=== PATIENT | female | born 1955 | race Caucasian/White ===

== ENCOUNTER 2018-04-10 14:04 | Emergency (ER) | payer BC ==
--- NOTE | 2018-04-10 15:00 | XRAY Report ---
EXAM: LEFT WRIST RADIOGRAPHY EXAM DATE: 04/10/2018 02:26 PM. CLINICAL HISTORY: Fell onto wrist, swollen. COMPARISON: None. TECHNIQUE: 3 views. FINDINGS: Bones: Transverse fracture through the distal radius metaphysis demonstrates approximately 25 degrees dorsal angulation. No evidence of intra-articular extension. Mild displaced ulnar styloid avulsion f racture. Joints: Normal. No subluxations. Soft Tissues: Mild soft tissue swelling. IMPRESSION: Dorsally angulated distal radius fracture. Ulnar styloid avulsion fracture. [facility] Referring Provider Line: [phone] SITE ID: [id number]
--- NOTE | 2018-04-10 15:16 | ED Physician Documentation ---
PD HPI UPPER EXT INJURY - Stated complaint Stated Complaint: L HAND INJURY - Chief complaint Chief Complaint: Ext Problem - History obtained from History obtained from: Patient, Family - History of Present Illness Location: Left, Wrist Type of injury: Fall Where injury occurred: Home Timing - onset: Today Timing - duration: Hours Timing - details: Abrupt onset, Still present Improved by: Rest, Ice, Immobilization Worsened by: Moving, Palpating Associated symptoms: Swelling. 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 She is uncertain exactly how this happened but she does have some swelling and tenderness of the wrist and she is come up to the hospital now for evaluation. She is able to move the left wrist in a range of motion she is able to move the elbow in a range of motion she does have pain with any movement of the wrist. She denies any pain in the shoulder she denies any loss of consciousness she does think that she hit herself in the back of the head and had some momentary nausea this is resolved. Review of Systems Constitutional: denies: Fever Eyes: denies: Decreased vision Ears: denies: Ear pain Nose: denies: Congestion Throat: denies: Sore throat Cardiac: denies: Chest pain / pressure Respiratory: denies: Dyspnea, Cough GI: reports: Nausea. denies: Abdominal Pain, Vomiting : denies: Dysuria, Frequency Skin: denies: Rash Musculoskeletal: reports: Joint pain, Joint swelling. denies: Neck pain, Back pain Neurologic: denies: Generalized weakness, Focal weakness, Numbness PD PAST MEDICAL HISTORY - Past Medical History Past Medical History: Yes Cardiovascular: Hypertension Endocrine/Autoimmune: HyPERthyroidism - Past Surgical History Past Surgical History: Yes Ortho: Other - Present Medications Home Medications: Ambulatory Orders Medication Instructions Recorded Confirmed HYDROcod/ACETAM 5/325 [[place] 5/325] 1 - 2 ea PO Q6H PRN #15 tablet 04/10/18 Levothyroxine [Synthroid] 04/10/18 Lisinopril 5 mg PO DAILY 04/10/18 - Allergies Allergies/Adverse Reactions: Allergies Allergy/AdvReac Type Severity Reaction Status Date / Time Cough syrup with and "H" Allergy Unknown Uncoded 04/10/18 14:11 - Social History Does the pt smoke?: No Smoking Status: Never smoker Does the pt drink ETOH?: Yes Does the pt have substance abuse?: No - Immunizations Immunizations are current?: Yes PD ED PE NORMAL - Vitals Vital signs reviewed: Yes (normal ) - General General: Alert and oriented X 3, No acute distress, Well developed/nourished - HEENT HEENT: Atraumatic, PERRL, EOMI, Other (no palpable hematoma or tender area) - Neck Neck: Supple, no meningeal sign - Respiratory Respiratory: No respiratory distress - Back Back: No CVA TTP, No spinal TTP - Derm Derm: Normal color, Warm and dry, No rash - Extremities Extremities: Other (There is swelling and tenderness to the left wrist with pain to palp of the dorsal wrist and the ROM is good but with pain and without crepitance. The distal n/v is intact. The elbow is without tenderness or restriction in ROM. ) - Neuro Neuro: No motor deficit, No sensory deficit Eye Opening: Spontaneous Motor: Obeys Commands Verbal: Oriented GCS Score: 15 - Psych Psych: Normal mood, Normal affect Results - Vitals Vitals: Vital Signs - 24 hr 04/10/18 14:08 Temperature 35.7 C L Heart Rate 83 Respiratory 18 Rate Blood Pressure 95/77 O2 Saturation 100 Oxygen O2 Source Room air - Rads (name of study) left wrist Radiology: Prelim report reviewed (Impression: Dorsally angulated distal radius fracture. Ulnar styloid avulsion fracture.), EMP read indepedently, See rad report Procedures - Splint (location) left wrist Splint applied by: Tech Type of splint: Fiberglass, Volar cock up Other: Patient tolerated well, No complications, Neurovascular intact, Good alignment, Sling provided PD MEDICAL DECISION MAKING - ED course Complexity details: reviewed results, re-evaluated patient, considered differential, d/w patient, d/w family ED course: 63-year-old female with a dorsally angulated distal radius fracture with ulnar fracture appears to have good range of motion in the articular surface she is splinted today and will be referred to orthopedics for follow-up. Departure - Departure Disposition: 01 Home, Self Care Clinical Impression: Fracture of distal radius and ulna Qualifiers: Encounter type: initial encounter Fracture type: closed Laterality: left Qualified Code(s): S52.502A - Unspecified fracture of the lower end of left radius, initial encounter for closed fracture; S52.602A - Unspecified fracture of lower end of left ulna, initial encounter for closed fracture; S52.602A - Unspecified fracture of lower end of left ulna, initial encounter for closed fracture Condition: Stable Instructions: ED Fx Forearm Radius Ulna Redu Requ Follow-Up: JOSÉ LUIS VERDE MD [Primary Care Provider] - [facility] [Provider Group] Prescriptions: HYDROcod/ACETAM 5/325 [[place] 5/325] 1 - 2 ea PO Q6H PRN #15 tablet PRN Reason: Pain
[2018-04-10 16:06] VITALS: BP 137/69
== END 2018-04-10 16:23 | disposition home or self-care (01) ==
LOC: ED 14:04
DX: S52.592A Other fractures of lower end of left radius, initial encounter for closed fracture (principal); S52.612A Displaced fracture of left ulna styloid process, initial encounter for closed fracture; W18.30XA Fall on same level, unspecified, initial encounter; Y93.H2 Activity, gardening and landscaping; Y92.009 Unspecified place in unspecified non-institutional (private) residence as the place of occurrence of the external cause; I10 Essential (primary) hypertension
CPT/HCPCS: 29125; 99283

== ENCOUNTER 2020-07-18 10:07 | Day surgery (SDC) | payer MEDICARE ==
[2020-07-18] MEDS ORDERED: fentaNYL 250 MCG/5 ML VIAL IVP ONE (10:08)
[2020-07-18] MEDS ORDERED: MIDAZOLAM 2 MG/2 ML VIAL IVP ONE (10:08)
[2020-07-18] MEDS ORDERED: LACTATED RINGERS 1,000 ML IV ONE (10:30)
[2020-07-18] MEDS ORDERED: LACTATED RINGERS 900 ML IV ONE (12:00)
[2020-07-18 12:55] VITALS: BP 106/71
== END 2020-07-18 10:08 | disposition home or self-care (01) ==
LOC: SDS 10:07
PROVIDERS: ATTEND Surgery
PROC: 0DBL8ZZ Excision of Transverse Colon, Via Natural or Artificial Opening Endoscopic (ICD-10-PCS; principal; 2020-07-18 11:15)
DX: Z12.11 Encounter for screening for malignant neoplasm of colon (principal); D12.3 Benign neoplasm of transverse colon; I10 Essential (primary) hypertension
CPT/HCPCS: 45380; J3010; J7120

== ENCOUNTER 2020-09-10 12:53 | Outpatient (CLI) | payer MEDICARE ==
--- NOTE | 2020-09-11 15:26 | Mammography Report ---
BILATERAL DIGITAL SCREENING MAMMOGRAM 3D/2D: 09/10/2020 CLINICAL: Routine screening. Sister with breast cancer. Comparison is made to exams dated: 11/15/2018 mammogram and 11/03/2017 mammogram - [facility]. There are scattered fibroglandular elements in both breasts. No significant masses, calcifications, or other findings are seen in either breast. There has been no significant interval change. IMPRESSION: NEGATIVE There is no mammographic evidence of malignancy. A 1 year screening mammogram is recommended. This exam was interpreted at Station ID: [id number]. NOTE: For mammograms, a report in lay terms will be sent to the patient. Approximately 15% of breast malignancies will not be visualized mammographically. In the management of a palpable breast mass, a negative mammogram must not discourage biopsy of a clinically suspicious lesion. Electronically Signed By: Lucero stroud/blakerad:09/10/2020 17:53:10 ACR BI-RADS Category 1: Negative 3341F PARENCHYMAL PATTERN: (A) - The breast(s) demonstrate(s) scattered fibroglandular densities. BI-RADS CATEGORY: (1) - 1 RECOMMENDATION: (ANNUAL) - Recommend routine annual screening mammography. [id number] 1 year screening LATERALITY: (B)
== END 2020-09-10 12:54 | disposition home or self-care (01) ==
LOC: DI 12:53
PROVIDERS: ATTEND Family Medicine
DX: Z12.31 Encounter for screening mammogram for malignant neoplasm of breast (principal); Z78.0 Asymptomatic menopausal state
CPT/HCPCS: 77063; 77067

== ENCOUNTER 2020-09-10 12:54 | Outpatient (CLI) | payer MEDICARE ==
--- NOTE | 2020-09-10 13:50 | DEXA Report ---
PROCEDURE: Dexa Spine and/or Hip INDICATIONS: POSTMENOPAUSAL TECHNIQUE: Dual energy x-ray absorptiometry (DXA) was performed on a [employer]. Regions measur ed are the AP Spine, femoral neck, and if needed forearm. COMPARISON: None. FINDINGS: Lumbar Spine: Bone Mineral Density 1.1, 0.7 g/cm/cm,T score -0.3, normal Left Hip: Bone Mineral Density 0.732 g/cm/cm,T score -2.2, osteopenia Left Femoral Neck: Bone Mineral Density 0.803 g/cm/cm, T score -1.7, osteopenia (T score greater or equal to -1.0: NORMAL) (T score from -1.1 to -2.4: OSTEOPENIA) (T score less than or equal to -2.5 to: OSTEOPOROSIS) Impression: Osteopenia. Patients with diagnosis of osteoporosis or osteopenia should have regular bone mineral density assess ment. For those eligible for Medicare, routine testing is allowed once every 2 years. Testing frequ ency can be increased for patients who have rapidly progressing disease or for those who are receivin g medical therapy to restore bone mass. Reviewed by: Amanda Perry MD, PhD on 09/10/2020 1:48 PM PDT Approved by: Amanda Perry MD, PhD on 09/10/2020 1:48 PM PDT Station ID: [id number]
== END 2020-09-10 12:55 | disposition home or self-care (01) ==
LOC: DI 12:54
PROVIDERS: ATTEND Family Medicine
DX: M85.89 Other specified disorders of bone density and structure, multiple sites (principal)
CPT/HCPCS: 77080

== ENCOUNTER 2021-04-10 10:29 | Outpatient (CLI) | payer MEDICARE ==
--- NOTE | 2021-04-14 13:25 | Mammography Report ---
UNILATERAL RIGHT DIGITAL DIAGNOSTIC MAMMOGRAM 3D/2D: 04/10/2021 CLINICAL: Diffuse right breast pain. Comparison is made to exams dated: 09/10/2020 mammogram, 11/15/2018 mammogram, 11/03/2017 mammogram, 1 12/23/2015 mammogram, and 01/06/2015 mammogram - [facility]. There are scattered fibroglandular elements in right breast. No significant masses, calcifications, or other findings are seen in the breast. IMPRESSION: INCOMPLETE: NEEDS ADDITIONAL IMAGING EVALUATION No mammographic evidence of malignancy. A targeted ultrasound of the reported palpable abnormality in the superior breast is recommended and will immediately follow. This exam was interpreted at Station ID: [id number]. NOTE: For mammograms, a report in lay terms will be sent to the patient. Approximately 15% of breast malignancies will not be visualized mammographically. In the management of a palpable breast mass, a negative mammogram must not discourage biopsy of a clinically suspicious lesion. Electronically Signed By: Ryan Quiles M.D. slc/:04/10/2021 11:20:15 ACR BI-RADS Category 0: Incomplete 3340F PARENCHYMAL PATTERN: (A) - The breast(s) demonstrate(s) scattered fibroglandular densities. BI-RADS CATEGORY: (0) - 0 Ultrasound [id number] Immediate follow-up LATERALITY: (B)
--- NOTE | 2021-04-14 13:25 | Ultrasound Report ---
LIMITED ULTRASOUND OF RIGHT BREAST: 04/10/2021 CLINICAL: Dense right upper breast tissue per ordering. ? mass. Comparison is made to exams dated: 04/10/2021 mammogram, 09/10/2020 mammogram, 11/15/2018 mammogram, mammogram, 10/22/2016 mammogram, and 01/06/2015 mammogram - [facility]. Real-time ultrasound of the right breast 3-9 o'clock region was performed. [place] scale images of the real-time examination were reviewed. No significant abnormalities were seen sonographically in the right breast in the region of the repor ethan palpable abnormality. IMPRESSION: NEGATIVE There is no sonographic evidence of malignancy. Return to annual mammogram screening schedule is recommended. Exam findings were conveyed to the patient. Patient is advised to monitor for significant change. Cli nical follow-up as needed. This exam was interpreted at Station ID: [id number]. Electronically Signed By: Ryan Qulies M.D. slc/:04/10/2021 12:49:43 Ultrasound BI-RADS: 1 Negative BI-RADS CATEGORY: (1) - 1 RECOMMENDATION: (ANNUAL) - Recommend routine annual screening mammography. [id number] 1 year screening LATERALITY: (B)
== END 2021-04-10 10:30 | disposition home or self-care (01) ==
LOC: DI 10:29
PROVIDERS: ATTEND Nurse Practitioner Family
DX: N63.11 Unspecified lump in the right breast, upper outer quadrant (principal); R92.8 Other abnormal and inconclusive findings on diagnostic imaging of breast

== ENCOUNTER 2021-10-16 10:13 | Outpatient (CLI) | payer MEDICARE ==
--- NOTE | 2021-10-19 14:00 | Mammography Report ---
BILATERAL DIGITAL SCREENING MAMMOGRAM 3D/2D: 10/16/2021 CLINICAL: Routine screening. Comparison is made to exams dated: 09/10/2020 mammogram, 11/15/2018 mammogram, and 11/03/2017 mammogra m - [facility]. There are scattered fibroglandular elements in both breasts. No significant masses, calcifications, or other findings are seen in either breast. There has been no significant interval change. IMPRESSION: NEGATIVE There is no mammographic evidence of malignancy. A 1 year screening mammogram is recommended. This exam was interpreted at Station ID: [id number]. NOTE: For mammograms, a report in lay terms will be sent to the patient. Approximately 15% of breast malignancies will not be visualized mammographically. In the management of a palpable breast mass, a negative mammogram must not discourage biopsy of a clinically suspicious lesion. Electronically Signed By: Lucero stroud/blakerad:10/16/2021 18:01:55 ACR BI-RADS Category 1: Negative 3341F PARENCHYMAL PATTERN: (A) - The breast(s) demonstrate(s) scattered fibroglandular densities. BI-RADS CATEGORY: (1) - 1 RECOMMENDATION: (ANNUAL) - Recommend routine annual screening mammography. [id number] 1 year screening LATERALITY: (B)
== END 2021-10-16 10:14 | disposition home or self-care (01) ==
LOC: DI 10:13
PROVIDERS: ATTEND Nurse Practitioner Family
DX: Z12.31 Encounter for screening mammogram for malignant neoplasm of breast (principal)

== ENCOUNTER 2022-11-01 11:14 | Outpatient (CLI) | payer MEDICARE ==
--- NOTE | 2022-11-02 10:47 | Mammography Report ---
BILATERAL DIGITAL SCREENING MAMMOGRAM 3D/2D: 11/01/2022 CLINICAL: Routine screening. Comparison is made to exams dated: 10/16/2021 mammogram, 04/10/2021 mammogram, 09/10/2020 mammogram, mammogram, and 11/03/2017 mammogram - [facility]. There are scattered areas of fibroglandular density in both breasts (category b / 25%-50% glandular t issue). No significant masses, calcifications, or other findings are seen in either breast. There has been no significant interval change. IMPRESSION: NEGATIVE There is no mammographic evidence of malignancy. A 1 year screening mammogram is recommended. Based on the Tyrer Cuzick model (a risk assessment model) the patients lifetime risk is 13.3% and he r 10 year risk is 7.5%. According to the ACR, ACS, and NCCN guidelines, an annual breast MRI exam darwin ng with mammogram is recommended if the patients lifetime risk is 20% or greater. This exam was interpreted at Station ID: [id number]. NOTE: For mammograms, a report in lay terms will be sent to the patient. Approximately 15% of breast malignancies will not be visualized mammographically. In the management of a palpable breast mass, a negative mammogram must not discourage biopsy of a clinically suspicious lesion. Electronically Signed By: Edilberto Cox M.D. acr/penrad:11/01/2022 16:48:56 ACR BI-RADS Category 1: Negative 3341F PARENCHYMAL PATTERN: (A) - The breast(s) demonstrate(s) scattered fibroglandular densities. BI-RADS CATEGORY: (1) - 1 RECOMMENDATION: (ANNUAL) - Recommend routine annual screening mammography. [id number] 1 year screening LATERALITY: (B)
== END 2022-11-01 11:15 | disposition home or self-care (01) ==
LOC: DI 11:14
PROVIDERS: ATTEND Internal Medicine
DX: Z12.31 Encounter for screening mammogram for malignant neoplasm of breast (principal)

== ENCOUNTER 2024-01-11 13:31 | Outpatient (CLI) | payer MEDICARE ==
--- NOTE | 2024-01-12 09:41 | Mammography Report ---
BILATERAL DIGITAL SCREENING MAMMOGRAM 3D/2D: 01/11/2024 CLINICAL: Routine screening. Comparison is made to exams dated: 11/01/2022 mammogram, 10/16/2021 mammogram, 04/10/2021 mammogram, mammogram, 09/10/2020 mammogram, and 11/03/2017 mammogram - [facility]. There are scattered areas of fibroglandular density in both breasts (category b / 25%-50% glandular t issue). No significant masses, calcifications, or other findings are seen in either breast. There has been no significant interval change. IMPRESSION: NEGATIVE There is no mammographic evidence of malignancy. A 1 year screening mammogram is recommended. Based on the Tyrer Cuzick model (a risk assessment model) the patient's lifetime risk is 12.6% and he r 10 year risk is 7.6%. According to the ACR, ACS, and NCCN guidelines, an annual breast MRI exam darwin ng with mammogram is recommended if the patient's lifetime risk is 20% or greater. This exam was interpreted at Station ID: [id number]. NOTE: For mammograms, a report in lay terms will be sent to the patient. Approximately 15% of breast malignancies will not be visualized mammographically. In the management of a palpable breast mass, a negative mammogram must not discourage biopsy of a clinically suspicious lesion. Electronically Signed By: Stephanie kirk/david:01/11/2024 16:01:47 letter sent: No_Letter ACR BI-RADS Category 1: Negative 3341F PARENCHYMAL PATTERN: (A) - The breast(s) demonstrate(s) scattered fibroglandular densities. BI-RADS CATEGORY: (1) - 1 Mammogram [id number] 1 year screening LATERALITY: (B)
== END 2024-01-11 13:32 | disposition home or self-care (01) ==
LOC: DI 13:31
PROVIDERS: ATTEND Registered Nurse
DX: Z12.31 Encounter for screening mammogram for malignant neoplasm of breast (principal); R92.323 Mammographic fibroglandular density, bilateral breasts

== ENCOUNTER 2024-01-16 13:29 | Outpatient (CLI) | payer MEDICARE | END 2024-01-16 13:30 | disposition home or self-care (01) | LOC: RT 13:29 | PROVIDERS: ATTEND Registered Nurse | DX: Z53.9 Procedure and treatment not carried out, unspecified reason (principal) ==

== ENCOUNTER 2024-01-16 13:47 | Emergency (ER) | payer MEDICARE ==
--- NOTE | 2024-01-16 14:11 | ED Physician Documentation ---
PD HPI CHEST PAIN - Stated complaint Stated Complaint: HIGH HR,FATIGUE,SOA - Chief complaint Chief Complaint: Cardiac - History obtained from History obtained from: Patient - History of Present Illness Timing - onset: How many weeks ago (several weeks) Timing - onset during: Light activity Timing - duration: Weeks Timing - details: Gradual onset, Waxing and waning Quality: Tightness, Other (She is having a feeling of dyspnea and has noted tachycardic heart rate in the range from 100-130 over the last several weeks. She had been to her primary care about dyspnea and was referred for PFTs. Today was noted to heart rate 1 30-1 50 and referred to the ER.) Location: Substernal Radiation: Back (She has noticed right flank pain over the last couple of weeks and thought it would be muscular. No apparent injury.) Improved by: No: Rest Worsened by: Exertion Associated symptoms: Shortness of air, Other (fatigue). No: Nausea, Vomiting Similar symptoms before: Has not had sx before Recently seen: Clinic (Was seen in her primary care clinic for insomnia primarily but also the back pain. Instructed to take NSAIDs and then recently prescribed hydroxyzine for sleep to help with the insomnia.) Review of Systems Constitutional: reports: Myalgias, Fatigue. denies: Fever, Chills, Weight Loss Nose: denies: Rhinorrhea / runny nose, Congestion Throat: denies: Sore throat Cardiac: reports: Palpitations (noted fast heart rate for past several weeks, range 100-130 variable.) Respiratory: denies: Cough GI: denies: Abdominal Pain, Nausea, Vomiting, Diarrhea Skin: denies: Rash, Lesions Musculoskeletal: reports: Back pain Neurologic: reports: Generalized weakness. denies: Focal weakness, Numbness PD PAST MEDICAL HISTORY - Past Medical History Past Medical History: Yes Cardiovascular: Hypertension Respiratory: None Endocrine/Autoimmune: HyPOthyroidism GI: Colon polyps : None HEENT: None Psych: None Musculoskeletal: None Derm: None - Past Surgical History Past Surgical History: Yes General: Colonoscopy Ortho: Other - Present Medications Home Medications: Ambulatory Orders Medication Instructions Recorded Confirmed Levothyroxine [Synthroid] 75 mcg PO DAILY 04/10/18 01/17/24 Losartan Potassium 25 mg PO DAILY 01/16/24 01/17/24 hydrOXYzine HCL [Hydroxyzine HCl] 25 mg ORAL QPM 01/16/24 01/16/24 - Allergies Allergies/Adverse Reactions: Allergies Allergy/AdvReac Type Severity Reaction Status Date / Time homatropine Allergy Unknown Verified 01/16/24 20:48 - Social History Does the pt smoke?: No Smoking Status: Never smoker Does the pt drink ETOH?: Yes Does the pt have substance abuse?: No - Immunizations Immunizations are current?: Yes PD ED PE NORMAL - Vitals Vital signs reviewed: Yes - General General: Alert and oriented X 3, Well developed/nourished - HEENT HEENT: Moist mucous membranes, Pharynx benign, Other (mild cervical adenopathy.) - Neck Neck: Supple, no meningeal sign - Cardiac Cardiac: No: RRR (regular but tachycardic) - Respiratory Respiratory: No respiratory distress, Clear bilaterally - Abdomen Abdomen: Soft, Non tender - Back Back: No CVA TTP - Derm Derm: Normal color, Warm and dry - Extremities Extremities: No edema, No calf tenderness / cord - Neuro Neuro: Alert and oriented X 3, No motor deficit, No sensory deficit Results - Vitals Vitals: Vital Signs - 24 hr 01/16/24 01/16/24 01/16/24 18:30 19:00 19:30 Temperature Heart Rate 101 H 99 102 H Respiratory 16 16 15 Rate Blood Pressure 127/73 O2 Saturation 99 98 99 01/16/24 01/16/24 01/16/24 20:00 21:00 22:00 Temperature Heart Rate 102 H 111 H 88 Respiratory 16 14 15 Rate Blood Pressure 137/79 H 128/92 H 127/81 H O2 Saturation 96 97 01/16/24 01/17/24 01/17/24 23:00 00:00 01:00 Temperature Heart Rate 92 86 88 Respiratory 17 24 13 Rate Blood Pressure 131/66 H 120/75 119/57 L O2 Saturation 96 96 96 01/17/24 01/17/24 01/17/24 02:00 03:00 05:00 Temperature Heart Rate 86 90 86 Respiratory 15 16 18 Rate Blood Pressure 122/70 121/59 L 109/69 O2 Saturation 94 5 L 96 01/17/24 01/17/24 01/17/24 06:00 07:00 09:18 Temperature Heart Rate 89 92 95 Respiratory 16 14 18 Rate Blood Pressure 121/77 122/72 120/75 O2 Saturation 94 96 100 0301/17/24 01/17/24 10:00 11:58 14:44 Temperature 36.4 C L Heart Rate 93 80 101 H Respiratory 12 16 20 Rate Blood Pressure 106/95 H 117/68 138/69 H O2 Saturation 94 98 100 01/17/24 16:12 Temperature Heart Rate 104 H Respiratory 14 Rate Blood Pressure 137/84 H O2 Saturation 99 Oxygen O2 Source Room air - Labs Labs: Laboratory Tests 01/16/24 01/16/24 01/16/24 14:05 14:05 14:05 WBC 5.8 RBC 4.63 Hgb 13.0 Hct 40.8 MCV 88.1 MCH 28.1 MCHC 31.9 L RDW 15.9 H Plt Count 165 MPV 9.7 Neut # (Auto) 4.7 Lymph # (Auto) 0.2 L Leon # (Auto) 0.6 Eos # (Auto) 0.1 Baso # (Auto) 0.1 Absolute Nucleated RBC 0.00 Nucleated RBC % 0.0 Sodium 139 Potassium 3.8 Chloride 99 L Carbon Dioxide 30 Anion Gap 10.0 BUN 18 Creatinine 0.8 Estimated GFR (MDRD) 71 L Glucose 163 H Calcium 13.5 H* Phosphorus Magnesium 1.2 L Total Bilirubin 0.7 AST 20 ALT 14 Alkaline Phosphatase 103 Troponin I High Sens 3.3 C-Reactive Protein 2.5 H B-Natriuretic Peptide Total Protein 7.2 Albumin 4.1 Globulin 3.1 Albumin/Globulin Ratio 1.3 Lipase 22 TSH 4.92 01/16/24 01/16/24 01/17/24 14:05 14:05 11:20 WBC RBC Hgb Hct MCV MCH MCHC RDW Plt Count MPV Neut # (Auto) Lymph # (Auto) Leon # (Auto) Eos # (Auto) Baso # (Auto) Absolute Nucleated RBC Nucleated RBC % Sodium 140 Potassium 3.7 Chloride 103 Carbon Dioxide 27 Anion Gap 10.0 BUN 19 Creatinine 0.8 Estimated GFR (MDRD) 71 L Glucose 114 H Calcium 11.2 H Phosphorus 4.1 Magnesium 1.4 L Total Bilirubin 0.6 AST 16 ALT 12 Alkaline Phosphatase 81 Troponin I High Sens C-Reactive Protein B-Natriuretic Peptide 14 Total Protein 6.2 L Albumin 3.6 Globulin 2.6 Albumin/Globulin Ratio 1.4 Lipase 18 TSH - Rads (name of study) chest xray Relevant Findings:: Prelim report reviewed (no acute findings), EMP independent interpretation of test chest/abd/pelvic CT Relevant Findings:: Prelim report reviewed (Paraesophageal lymph node with some encroachment on the IVC and aorta. Large conglomeration of lymph node mass retroperitoneal measuring 6 x 10 x 12 cm. Multiple lymph nodes throughout the mesentery and lung parenchyma.), EMP independent interpretation of test PD Medical Decision Making - ED course Complexity details: reviewed results, considered differential (With the persistent tachycardia and some fatigue, I would consider things like anemia, thyroid disorder, new onset diabetes, cardiomyopathy or other concerns. Can check basic labs to evaluate for these.), d/w patient, d/w artist consultant (Dr. Terrazas, section chief Oncology from [facility]. His opinion is that the patient should be transferred to acute care facility that can do biopsy and start chemotherapy more promptly due to her symptoms of the tachycardia and elevated calcium as well as the description tumor encroaching IVC/aorta.) Reviewed Lab Results: The patient's labs returned a normal TSH. She is on a low-dose thyroid supplement already and appears to be the correct dose. Basic blood count shows a normal white count and hemoglobin. Electrolytes show a decrease in the magnesium at 1.2. Potassium and sodium are normal. Her calcium is elevated at 13.5 which is unusual as an isolated finding. She does take a vitamin D supplement that has some calcium in it but I would not think this to cause a profound or moderate elevation as this. With the fatigue and tachycardia over the last few weeks associated with a isolated hypercalcemia, I would be concern for hypercalcemia of malignancy and ordered a CT of the chest and belly. This did find for multiple lymph nodes in various places with a large lymph node conglomeration in the retroperitoneal area measuring 6 x 10 x 12 cm. Of concern however is also a paraesophageal lymph node that is in wrapping the IVC and aorta. These findings are particularly of concern when I consulted with oncology on- call. They feel the patient should be transferred for more prompt biopsy and diagnosis and onset of chemotherapy. The oncologist stated initial chemotherapy for lymphoma is typically inpatient anyway due to concerns for tissue lysis syndrome. I discussed this with the patient. She is in agreement we meant for this. We will search for hospitals with bed availability for this. Treatment was initiated with fluids and Lasix for the hypercalcemia. It is of a moderate elevation but presumably can go higher given the lymphoma so I also ordered a by phosphonate. We will continue with IV fluids as well. ED course: The patient remained good overnight. She has not had any pains. She had received IV fluids as well as medication for the hypercalcemia. Repeat labs this morning showed a normal blood count. Her calcium level was improved to 11.7. Other electrolytes were good with the magnesium improved to 1.4. We can run a little bit more magnesium if needed. [facility] called that they did have a bed available and are able to accept the patient. I talked with oncology and then Dr. Kevyn Schwarz the hospitalist who is the accepting and agree with the treatment. The patient will be transported by BLS ambulance. - Consults Consults: Consulted (name) (Nini) Departure - Departure Disposition: 02 Transfer Acute Care Hosp Clinical Impression: Tachycardia, Hypercalcemia, Back pain, Lymphoma, Hypomagnesemia Condition: Stable Record reviewed to determine appropriate education?: Yes Follow-Up: Mona Toledo, [employer] [Primary Care Provider] - Forms: PCP List
[2024-01-16 14:12] LABS: BASOPHILS # (AUTO) 0.1 10^3/uL (0.0-0.1); BASOPHILS % (AUTO) 0.9 %; EOSINOPHILS # (AUTO) 0.1 10^3/uL (0.0-0.7); EOSINOPHILS % (AUTO) 1.9 %; HCT - HEMATOCRIT 40.8 % (37.0-47.0); LYMPHOCYTES # (AUTO) 0.2 10^3/uL (1.5-3.5); MEAN CORPUSCULAR HEMOGLOBIN 28.1 pg (27.0-31.0); MEAN CORPUSCULAR HGB CONC 31.9 g/dL (32.0-36.0); MEAN CORPUSCULAR VOLUME 88.1 fL (81.0-99.0); MEAN PLATELET VOLUME 9.7 fL (7.9-10.8); MONOCYTES # (AUTO) 0.6 10^3/uL (0.0-1.0); MONOCYTES % (AUTO) 10.9 %; NEUTROPHILS # (AUTO) 4.7 10^3/uL (1.5-6.6); PLT - PLATELET COUNT 165 10^3/uL (130-450); RED BLOOD COUNT 4.63 10^6/uL (4.20-5.40); RED CELL DISTRIBUTION WIDTH 15.9 % (12.0-15.0); WHITE BLOOD COUNT 5.8 x10^3/uL (4.8-10.8)
[2024-01-16 14:39] LABS: TROPONIN I HIGH SENSITIVITY 3.3 ng/L (2.3-14.8)
[2024-01-16 14:54] LABS: CALCIUM 13.5 mg/dL (8.5-10.3)
--- NOTE | 2024-01-16 14:54 | XRAY Report ---
PROCEDURE: Chest 1V INDICATIONS: Chest pain TECHNIQUE: One view of the chest was acquired. COMPARISON: None. FINDINGS: Surgical changes and devices: None. Lungs and pleura: No pleural effusions or pneumothorax. Linear left basilar opacity likely atelectas is. Mediastinum: Mediastinal contours appear normal. Heart size is normal. Bones and chest wall: No suspicious bony lesions. Overlying soft tissues appear unremarkable. IMPRESSION: No acute cardiopulmonary process. Reviewed by: Lissa Kaye MD on 01/16/2024 2:52 PM PST Approved by: Lissa Kaye MD on 01/16/2024 2:52 PM PST Station ID: [id number]
[2024-01-16 15:04] LABS: CRP - C-REACTIVE PROTEIN 2.5 mg/dL (<0.5); MAGNESIUM 1.2 mg/dL (1.7-2.3)
[2024-01-16 15:12] LABS: ALBUMIN 4.1 g/dL (3.2-5.5); ALBUMIN/GLOBULIN RATIO 1.3 (1.0-2.2); BILIRUBIN,TOTAL 0.7 mg/dL (0.2-1.0); CREATININE 0.8 mg/dL (0.6-1.3); POTASSIUM 3.8 mmol/L (3.5-4.5); TOTAL PROTEIN 7.2 g/dL (6.4-8.9)
[2024-01-16 15:19] LABS: THYROID STIMULATING HORMONE 4.92 uIU/mL (0.34-5.60)
[2024-01-16] MEDS: MAGNESIUM SULFATE 2 GRAM 2 GM/50 ML BAG IV ONE (16:14)
[2024-01-16] MEDS ORDERED: IOVERSOL 320 100 ML VIAL IVP ONE (16:45)
--- NOTE | 2024-01-16 17:29 | CT Report ---
PROCEDURE: Chest W INDICATIONS: tachycardia, elevated calcium CONTRAST: Optiray 320- 100ml TECHNIQUE: After the administration of intravenous contrast, a CT scan of the chest was performed. Images were recorded and evaluated at appropriate window settings. Reformats: axial MIP of the chest, coronal and sagittal. For radiation dose reduction, the following was used: automated exposure control, adjustme nt of mA and/or kV according to patient size. COMPARISON: Same day chest x-ray FINDINGS: Image quality: Diagnostic. Chest wall and lower neck: No thyroid nodule which requires sonographic follow up. No axillary or sup raclavicular adenopathy by size. Lungs and pleura: Biapical pleural-parenchymal scarring. No consolidation. No pleural effusions. No pneumothorax. Right upper lobe 2 mm pulmonary nodule (4/17). 3 mm right upper lobe nodule (4/31). Lef t lower lobe 2 mm micronodule (467). Linear atelectasis versus scarring within the bilateral lower lo bes, right middle lobe and lingula. Mediastinum: Heart size is normal. Mild coronary desiccation is. No pericardial effusion. No large ve ssel abnormality. Prominent enlarged lower paraesophageal lymph nodes measuring up to 1.1 cm (2/75). Bones: No aggressive osseous abnormality. Mild degenerative changes of the spine. Upper Abdomen: Please refer to separate dictated CT of the abdomen and pelvis. IMPRESSION: 1.Enlarged lower paraesophageal lymph node measuring 1.1 cm, concerning for metastatic disease. 2.Scattered pulmonary micronodules are nonspecific, attention on follow-up. Reviewed by: Avery Hanley MD on 01/16/2024 5:28 PM PST Approved by: Avery Hanley MD on 01/16/2024 5:28 PM PST Station ID: [id number]
[2024-01-16] MEDS: SODIUM CHLORIDE 0.9% 1,000 ML IV STA (17:34)
--- NOTE | 2024-01-16 18:01 | CT Report ---
PROCEDURE: Abdomen/Pelvis W INDICATIONS: tachycardia, elevated calcium CONTRAST: Optiray 320- 100ml TECHNIQUE: After the administration of intravenous contrast, a CT scan of the abdomen and pelvis was performed. Images were recorded and evaluated at appropriate window settings. Reformats: coronal and sagittal. F or radiation dose reduction, the following was used: automated exposure control, adjustment of mA and /or kV according to patient size. COMPARISON: None. FINDINGS: Image quality: Diagnostic. Lower chest: Please refer to separately dictated CT of chest. Liver: No solid mass. Multiple hepatic hypodensities which appear to be cystic. Gallbladder and biliary tree: Cholelithiasis without wall thickening. No biliary dilation. Spleen: No splenomegaly. Pancreas: No pancreatic ductal dilation. Adrenals: No adrenal nodule. Kidneys and ureters: No hydronephrosis. No renal cystic lesion which requires follow up. No solid mas s. Stomach, bowel and peritoneum: No bowel distension. Small bowel ascites.. Lymph nodes: Conglomerate retroperitoneal lymphadenopathy involving the mid and upper abdomen measuri ng approximately 9.7 x 10.6 x 16.9 cm. This encases the aorta and IVC as well as the branching vessel s and less than from the spine. Additional enlarged lymph nodes are seen throughout the mesentery and pelvis. Vessels: No infrarenal aortic aneurysm. Atherosclerotic vascular calcific indications. PELVIS Reproductive organs: Unremarkable. Bladder: No abnormal wall thickening, accounting for underdistention. Pelvic lymph nodes: No pelvic adenopathy by size criteria. Bones: No aggressive osseous abnormality. Decreased osseous mineralization. Degenerative changes, mos t pronounced at L5-S1. Other: No significant ventral or inguinal hernia. IMPRESSION: 1.Conglomerate lymphadenopathy within the upper abdomen as described above. Additional enlarged lymph nodes throughout the mesentery and pelvis. Findings are concerning for lymphoma. Other differential considerations include metastatic disease. 2.Small volume ascites, may be reactive or malignant. Reviewed by: Avery Hanley MD on 01/16/2024 6:00 PM [facility] Approved by: Avery Hanley MD on 01/16/2024 6:00 PM PST Station ID: [id number]
[2024-01-16] MEDS: IOVERSOL 320 100 ML VIAL IVP ONE (18:43)
[2024-01-16] MEDS: METOPROLOL TARTRATE 50 MG TABLET PO STA (19:27)
[2024-01-16] MEDS ORDERED: ZOLEDRONIC ACID 4 MG/5 ML VIAL IV STA (19:46)
[2024-01-16] MEDS ORDERED: ZOLEDRONIC ACID 4 MG in SODIUM CHLORIDE 0.9% 100ML 100 ML IV ONE (20:00)
[2024-01-16] MEDS: FUROSEMIDE 20 MG/2 ML VIAL IVP STA (20:21)
[2024-01-16] MEDS: ZOLEDRONIC ACID 4 MG/100 ML 4 MG/100 ML BAG IV ONE (21:34)
[2024-01-17] MEDS: LEVOTHYROXINE 75 MCG TABLET PO SCH (07:30)
[2024-01-17] MEDS: METOPROLOL TARTRATE 25 MG TABLET PO SCH (08:39)
[2024-01-17] MEDS: LOSARTAN 50 MG TABLET PO SCH (08:39)
[2024-01-17] MEDS: SODIUM CHLORIDE 0.9% 1,000 ML IV STA (11:24)
[2024-01-17 11:36] LABS: MAGNESIUM 1.4 mg/dL (1.7-2.3)
[2024-01-17 11:42] LABS: ALBUMIN 3.6 g/dL (3.2-5.5); ALBUMIN/GLOBULIN RATIO 1.4 (1.0-2.2); BILIRUBIN,TOTAL 0.6 mg/dL (0.2-1.0); CALCIUM 11.2 mg/dL (8.5-10.3); CREATININE 0.8 mg/dL (0.6-1.3); POTASSIUM 3.7 mmol/L (3.5-4.5); TOTAL PROTEIN 6.2 g/dL (6.4-8.9)
[2024-01-17] MEDS: ACETAMINOPHEN 500 MG TABLET PO STA (17:53)
[2024-01-17 20:43] VITALS: BP 144/88; O2SAT 95
== END 2024-01-17 20:30 | disposition short-term general hospital (02) ==
LOC: ED 13:47
DX: R00.0 Tachycardia, unspecified (principal); E83.52 Hypercalcemia; E83.42 Hypomagnesemia; C85.90 Non-Hodgkin lymphoma, unspecified, unspecified site; M54.9 Dorsalgia, unspecified; I10 Essential (primary) hypertension
CPT/HCPCS: 36415; 71045; 71260; 74177; 80053; 83690; 83735; 83880; 84100; 84443; 84484; 85025; 86140; 93005; 96361; 96365; 96366; 96367; 96375; 99285; A9270; J3489; Q9967